=== PATIENT | female | born 1990 | race Caucasian/White ===

== ENCOUNTER 2023-03-22 09:53 | Emergency (ER) | payer MEDICAID ==
[~2023-03-22] VITALS: Ht 165.1 cm; Wt 60.0 kg
[2023-03-22 10:07] VITALS: BP 141/107; PULSE 130; RESP 18; TEMP 98.3; O2SAT 100
== END 2023-03-22 12:00 | disposition left against medical advice (07) ==
LOC: ER 09:53
DX: N89.8 Other specified noninflammatory disorders of vagina (principal); Z53.21 Procedure and treatment not carried out due to patient leaving prior to being seen by health care provider
CPT/HCPCS: 99281

== ENCOUNTER 2023-05-05 10:55 | Emergency (ER) | payer MEDICAID, OTHER ==
[~2023-05-05] VITALS: Ht 167.6 cm; Wt 69.0 kg
[2023-05-05 12:15] VITALS: BP 146/99; PULSE 100; RESP 18; TEMP 98.6; O2SAT 100
[2023-05-05 13:11] LABS: CLARITY URINE CLOUDY (CLEAR); COLOR URINE YELLOW (YELLOW); GLUCOSE URINE NEGATIVE (NEGATIVE); KETONES URINE NEGATIVE (NEGATIVE); LEUKOCYTE ESTERASE URINE 3+ (NEGATIVE); NITRITE URINE POSITIVE (NEGATIVE); OCCULT BLOOD URINE TRACE (NEGATIVE); PH URINE 6.5 (4.5-8.0); PROTEIN URINE 1+ (NEGATIVE); SPECIFIC GRAVITY URINE 1.019 (1.005-1.030)
[2023-05-05] MEDS ORDERED: DOXYCYCLINE HYCLATE 100MG CAPSULE PO ONE (13:15)
[2023-05-05] MEDS ORDERED: CEFTRIAXONE SODIUM 500MG VIAL IM ONE (13:15)
[2023-05-05 13:30] LABS: SQUAMOUS EPITHELIAL CELL URINE RARE /lpf (RARE/1+)
[2023-05-05 13:31] LABS: WBC URINE 15-25 /hpf (0-2)
[2023-05-05 13:32] LABS: BACTERIA URINE 4+; RBC URINE 0-2 /hpf (0-2); YEAST URINE NONE SEEN
[2023-05-05 14:23] LABS: ALANINE AMINOTRANSFERASE 34 IU/L (10-49); ALBUMIN 3.2 g/dL (3.2-4.8); ASPARTATE AMINOTRANSFERASE 44 IU/L (<34); BILIRUBIN TOTAL 0.3 mg/dL (0.1-1.0); CALCIUM 8.6 mg/dL (8.7-10.4); CARBON DIOXIDE 24 mEq/L (21-32); CHLORIDE 101 mEq/L (98-107); CREATININE 0.6 mg/dL (0.6-1.0); GLUCOSE 80 mg/dL (70-105); PROTEIN TOTAL 7.3 g/dL (6.0-8.3); SODIUM 132 mEq/L (136-145); TROPONIN I HIGH SENSITIVITY 11 ng/L (3.0-34); UREA NITROGEN BLOOD 9 mg/dL (9-23)
[2023-05-05 14:40] LABS: TROPONIN I HIGH SENSITIVITY 11 ng/L (3.0-34)
[2023-05-05 14:48] LABS: BASOPHILS % 1.5 % (0.0-2.0); DIFFERENTIAL COMMENT 0; EOSINOPHILS % 2.8 % (0.0-5.0); HEMATOCRIT. 35.1 % (36.0-48.0); HEMOGLOBIN. 11.4 g/dL (12.0-16.0); LYMPHOCYTES % 26.4 % (20.0-50.0); MEAN CORPUSCULAR HEMOGLOBIN 24.6 pg (28.0-32.0); MEAN CORPUSCULAR HGB CONC 32.6 g/dL (31.0-37.0); MEAN CORPUSCULAR VOLUME 75.4 fL (81.0-99.0); MONOCYTES % 5.6 % (2.0-8.0); NEUTROPHILS % 63.7 % (40.0-76.0); PLATELET 344 x1000/uL (130-400); RED BLOOD CELL COUNT 4.65 mill/uL (4.2-5.4); RED CELL DISTRIBUTION WIDTH 13.8 % (11.6-14.6)
[2023-05-05] MEDS ORDERED: PODO3.5G TP (17:06)
[2023-05-05] MEDS ORDERED: CEPH500C2 MT (17:07)
[2023-05-09 05:07] LABS: CHLAMYDIA TRACHOMATIS NAA Positive (Negative); NEISSERIA GONORRHOEAE NAA Negative (Negative)
== END 2023-05-05 17:12 | disposition home or self-care (01) ==
LOC: ER 10:55
DX: M79.89 Other specified soft tissue disorders (principal); R21 Rash and other nonspecific skin eruption
CPT/HCPCS: 87491; 87591; 80053; 81003; 81025; 84702; 83880; 85025; 86592; 86593; 87086; 87186; 84484; 87077; 36415; 71045; 76801; 76817; 93005; 96372; 99285; 86780; J0696; Z7610 ×2

== ENCOUNTER 2024-07-16 11:46 | Emergency (ER) | payer OTHER ==
[~2024-07-16] VITALS: Ht 167.6 cm; Wt 70.0 kg
[~2024-07-16 11:46] MED LIST: CEPH500C2 MT; PODO3.5G TP
[2024-07-16 12:25] LABS: CLARITY URINE CLOUDY (CLEAR); COLOR URINE DARK YELLOW (YELLOW); GLUCOSE URINE NEGATIVE (NEGATIVE); KETONES URINE NEGATIVE (NEGATIVE); LEUKOCYTE ESTERASE URINE TRACE (NEGATIVE); NITRITE URINE POSITIVE (NEGATIVE); OCCULT BLOOD URINE 3+ (NEGATIVE); PH URINE 5.5 (4.5-8.0); PROTEIN URINE 1+ (NEGATIVE); SPECIFIC GRAVITY URINE 1.027 (1.005-1.030)
[2024-07-16 12:25] LABS: BASOPHILS % 2.5 % (0.0-2.0); EOSINOPHILS % 3.9 % (0.0-5.0); HEMATOCRIT. 24.8 % (36.0-48.0); HEMOGLOBIN. 7.1 g/dL (12.0-16.0); LYMPHOCYTES % 37.1 % (20.0-50.0); MEAN CORPUSCULAR HEMOGLOBIN 16.2 pg (28.0-32.0); MEAN CORPUSCULAR HGB CONC 28.7 g/dL (31.0-37.0); MEAN CORPUSCULAR VOLUME 56.4 fL (81.0-99.0); MEAN PLATELET VOLUME 9.1 fl (7.4-10.4); MONOCYTES % 5.4 % (2.0-8.0); NEUTROPHILS % 51.1 % (40.0-76.0); PLATELET 402 x1000/uL (130-400); RED CELL DISTRIBUTION WIDTH 19.1 % (11.6-14.6); WHITE BLOOD COUNT 6.6 x1000/uL (4.5-11.0)
[2024-07-16 12:30] LABS: ADD RBC MORPHOLOGY YES; DIFFERENTIAL COMMENT 1
[2024-07-16 12:31] LABS: CHLORIDE 108 mEq/L (98-107); SODIUM 140 mEq/L (136-145)
[2024-07-16 12:32] LABS: CARBON DIOXIDE 28 mEq/L (21-32)
[2024-07-16 12:33] LABS: CALCIUM 9.2 mg/dL (8.7-10.4)
[2024-07-16 12:37] LABS: CREATININE 0.6 mg/dL (0.6-1.0); GLUCOSE 93 mg/dL (70-105); UREA NITROGEN BLOOD 8 mg/dL (9-23)
[2024-07-16 12:38] LABS: ETHANOL BLOOD < 10 mg/dL (<10)
[2024-07-16 12:39] LABS: ACETAMINOPHEN < 2 ug/mL (10-30)
[2024-07-16 12:46] LABS: SQUAMOUS EPITHELIAL CELL URINE 2+ /lpf (RARE/1+)
[2024-07-16 12:47] LABS: BACTERIA URINE 3+; YEAST URINE NONE SEEN
[2024-07-16 13:18] LABS: *AMPHETAMINES SCREEN URINE PRESUMPTIVE POSITIVE (NEGATIVE)
[2024-07-16 13:19] LABS: *BARBITURATES SCREEN URINE NEGATIVE (NEGATIVE); *BENZODIAZEPINES SCREEN URINE NEGATIVE (NEGATIVE); *COCAINE SCREEN URINE NEGATIVE (NEGATIVE); METHADONE URINE SCREEN NEGATIVE (NEGATIVE); OPIATES URINE SCREEN NEGATIVE (NEGATIVE)
[2024-07-16 13:20] LABS: CANNABINOID URINE SCREEN PRESUMPTIVE POSITIVE (NEGATIVE); ECSTASY MDMA SCREEN URINE CONF.TEST INDICATED (NEGATIVE); PHENCYCLIDINE URINE SCREEN NEGATIVE (NEGATIVE)
[2024-07-16 13:35] LABS: ANISOCYTOSIS 2+; PLATELET ESTIMATE SLIGHTLY INCREASED
[2024-07-16 13:36] LABS: HYPOCHROMASIA 3+; MICROCYTOSIS 3+
[2024-07-16] MEDS: NITROFURANTOIN 100MG M/M CAPSULE PO ONE (14:09)
[2024-07-16 15:09] VITALS: O2SAT 100
[2024-07-16] MEDS: MIDAZOLAM HCL 2 MG/2 ML VIAL IM ONE (15:09)
[2024-07-16] MEDS: OLANZAPINE 10 MG/VIAL IM ONE (15:09)
[2024-07-16 15:11] LABS: HCG SCREEN NEGATIVE
[2024-07-16 17:16] VITALS: BP 126/74; PULSE 90; RESP 16; TEMP 36.8; O2SAT 99
== END 2024-07-16 18:00 ==
LOC: ER 11:46
DX: R46.2 Strange and inexplicable behavior (principal); Z20.822 Contact with and (suspected) exposure to COVID-19; Z79.899 Other long term (current) drug therapy
CPT/HCPCS: 80305; 80048; 81003; 80307; 80329; 80320; 84703; 85025; 36415; 71045; 96372; 99285; 87426; J3490; J2250; Z7610; G0480